=== PATIENT | female | born 1955 ===

== ENCOUNTER 2024-11-26 06:20 | Day surgery (SDC) | payer MEDICARE, SELFPAY ==
[2024-11-26 09:14] LABS: Glucose - Point of Care 129 mg/dl (70-99)
== END 2024-11-26 10:44 | disposition home or self-care (01) ==
LOC: GI 06:20
PROVIDERS: ATTENDING PHYSICIAN Internal Medicine Gastroenterology
DX: Z12.11 Encounter for screening for malignant neoplasm of colon (principal); K57.30 Diverticulosis of large intestine without perforation or abscess without bleeding; K64.8 Other hemorrhoids; D12.0 Benign neoplasm of cecum; D12.2 Benign neoplasm of ascending colon; Z86.0100 Personal history of colon polyps, unspecified
CPT/HCPCS: 45385; 88305; 82962